=== PATIENT | female | born 1980 | race Caucasian/White ===

== ENCOUNTER 2016-06-01 13:02 | Emergency (ER) | payer OTHER ==
[2016-06-01] MEDS ORDERED: Sodium Chloride 0.9% 1,000 ML ONE (13:19)
[2016-06-01] MEDS ORDERED: Ondansetron 4 MG/2 ML SDV ONE (13:19)
[2016-06-01] MEDS ORDERED: Ondansetron 4 MG/2 ML SDV IVPUSH ONE (13:20)
[2016-06-01] MEDS ORDERED: Sodium Chloride 0.9% 1,000 ML IV ONE (13:20)
--- NOTE | 2016-06-01 13:51 | EDM.PDOC ---
ED UPPER BACK/NECK PAIN/INJURY - General Chief Complaint: Neuro Symptoms/Deficits Stated Complaint: RUFF / NECK PAIN Time Seen by Provider: 06/01/16 13:25 Source of Information: Reports: Patient History Limitations: Reports: No limitations - History of Present Illness INITIAL COMMENTS - FREE TEXT/NARRATIVE: PT WAS BEING TREATED BY LOCAL CHIROPRACTOR AND DURING MANIPULATION, DEVELOPED SEVERE RUFF, NAUSEA, BLURRY VISION, AND DIZZINESS. SYMPTOMS PERSISTED WHILE MANIPULATION CONTINUED. FOLLOWING TREATMENT, PT PRESENTED TO ER. NO CONTACT WAS RECEIVED BY CHIROPRACTOR TO EXPLAIN CIRCUMSTANCES. PT DENIES SPECIFIC INJURY OR INSULT TO CERVICAL SPINE BUT DOES GO TO CHIROPRACTOR ON [facility]ASION FOR TREATMENT. SYMPTOMS PERSIST WITH ER PRESENTATION. PT DENIES CP, SOB, RADICULAR PAIN, OR SIMILAR SYMPTOMS IN PAST. Timing/Duration: Reports: Sudden onset Location: Reports: upper Quality: Reports: Ache Severity: moderate Improves with: Reports: None Worsens with: Reports: Movement Associated Symptoms: Reports: Denies symptoms - Related Data Allergies/ADRs: Allergies Allergy/AdvReac Type Severity Reaction Status Date / Time No Known Drug Allergies Allergy Unknown none Verified 06/01/16 13:27 Home Meds: Home Meds . [No Known Home Meds] 06/01/16 [History] ED ROS GENERAL - Review of Systems Review Of Systems: ROS reveals no pertinent complaints other than HPI. Constitutional: Reports: no symptoms HEENT: Reports: No symptoms Respiratory: Reports: No Symptoms Cardiovascular: Reports: No symptoms Endocrine: Reports: no symptoms GI/Abdominal: Reports: No symptoms : Reports: no symptoms Musculoskeletal: Reports: neck pain. Denies: shoulder pain, arm pain Skin: Reports: no symptoms Neurological: Reports: Dizziness, Headache. Denies: Numbness, Paresthesia, Trouble Speaking, Change in Speech Psychiatric: Reports: No symptoms Hematologic/Lymphatic: Reports: no symptoms Immunologic: Reports: no symptoms ED EXAM, UPPER BACK/NECK PAIN - Physical Exam Exam: See Below Exam Limited By: No limitations General Appearance: alert, WD/WN, mild distress Eye Exam: bilateral eye: normal inspection Ears Exam: normal external exam, normal canal, normal TMs Nose Exam: normal inspection, normal mucousa, no blood Throat/Mouth Exam: Normal inspection, Normal oropharynx, No airway compromise Head Exam: atraumatic, normocephalic Neck Exam: painful range of motion, paraspinous muscle tender (LEFT). 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, no motor/sensory deficits, alert, normal mood/affect, oriented x 3 Psychiatric: normal affect, normal mood Skin Exam: Normal color, Warm/dry Lymphatic: no adenopathy Course - Orders/Labs/Meds Meds: Medications Discontinued Medications Generic Name Dose Route Start Last Admin Trade Name Freq PRN Reason Stop Dose Admin Sodium Chloride Confirm 06/01/16 13:19 Normal Saline Administered 06/01/16 13:20 Dose 1,000 mls @ as directed .ROUTE .STK-MED ONE Ondansetron HCl Confirm 06/01/16 13:19 Zofran Administered 06/01/16 13:20 Dose 4 mg .ROUTE .STK-MED ONE - Radiology Interpretation Free Text/Narrative:: CT CERVICAL SPINE SHOWS NO ACUTE PROCESS CT Results Date: 06/01/16 CT Results Time: 14:15 Departure - Departure Time of Disposition: 15:22 Disposition: Home, Self-Care 01 Condition: good Clinical Impression: Cervical muscle pain Headache Qualifiers: Headache type: unspecified Headache chronicity pattern: acute headache Intractability: not intractable Qualified Code(s): R51 - Headache Forms: ED Department Discharge Additional Instructions: FOLLOW UP WITH PCP IN NEXT 1-2 DAYS. RETURN TO ER SOONER IF SYMPTOMS PERSIST - Assessment/Plan Assessment:: RUFF / NECK PAIN S/P CHIROPRACTOR MANIPULATION Plan: REST / RELAX / F/U WITH PCP
[2016-06-01] MEDS ORDERED: Ketorolac 30 MG/ML SDV IVPUSH ONE (14:14)
[2016-06-01] MEDS ORDERED: Ketorolac 30 MG/ML SDV ONE (14:15)
[2016-06-01 14:42] VITALS: BP 111/71
== END 2016-06-01 15:35 | disposition home or self-care (01) ==
LOC: KA.ED 13:02
DX: M79.1 Myalgia (principal); R51 Headache
CPT/HCPCS: 72125; 96361; 96374; 96375; 99283; J1885; J2405; J7030